=== PATIENT | female | born 1970 | race Caucasian/White ===

== ENCOUNTER 2016-12-27 18:21 | Emergency (ER) | payer SELFPAY ==
--- NOTE | 2016-12-27 18:58 | ER Document Report ---
HPI - HPI Patient complains to provider of: swelling behind right ear Pain Level: 4 Context: 46 yo female c/o painful swelling behind right ear x 1 day. concerned she may have a spider bite. no fever. pt feels otherwise fine Associated Symptoms: None Exacerbated by: Denies Relieved by: Denies Similar symptoms previously: No Recently seen / treated by doctor: No - ROS Systems Reviewed and Negative: Yes All other systems reviewed and negative - DERM Skin Color: Normal, [place] Past Medical History - General Information source: Patient - Social History Smoking Status: Current Every Day Smoker Frequency of alcohol use: None Drug Abuse: None Lives with: Family Family History: Reviewed & Not Pertinent - Past Medical History Cardiac Medical History: Reports: Hx Hypertension Renal/ Medical History: Denies: Hx Peritoneal Dialysis Vertical Provider Document - CONSTITUTIONAL Agree With Documented VS: Yes Exam Limitations: No Limitations General Appearance: WD/WN, No Apparent Distress - INFECTION CONTROL TRAVEL OUTSIDE OF THE [place] IN LAST 30 DAYS: No - HEENT HEENT: Atraumatic, Normal ENT Exam, PERRLA Notes: + discrete right post auricular tender swollen node. no redness, warmth or other s/s infection - NECK Neck: Normal Inspection, Supple. negative: Lymphadenopathy-Left, Lymphadenopathy-Right - RESPIRATORY Respiratory: Breath Sounds Normal, No Respiratory Distress - CARDIOVASCULAR Cardiovascular: Regular Rate, Regular Rhythm - NEURO Level of Consciousness: Awake, Alert, Appropriate - DERM Integumentary: Warm, Dry Course - Re-evaluation Re-evalutation: 12/27/16 19:00 H&P c/w an inflamed lymph node. pt is afebrile, nontoxic, no s/s infection. will treat with anti-inflammatory medication and close follow up with primary care. pt agreeable with plan and stable for discharge Discharge - Discharge Clinical Impression: Adenopathy Condition: Stable Disposition: HOME, SELF-CARE Instructions: Lymphadenopathy ([facility]), Ibuprofen (General) ([facility]), Warm Packs ([facility] ) Additional Instructions: You have an inflamed lymph node Take Motrin as presecribed Try not to aggravate area Follow up with primary care or return to ER for any worsening Prescriptions: Ibuprofen [Motrin 800 Mg Tablet] 800 mg PO Q6H #20 tablet
== END 2016-12-27 19:24 | disposition home or self-care (01) ==
LOC: ER 18:21
DX: R59.0 Localized enlarged lymph nodes (principal); I10 Essential (primary) hypertension; F17.200 Nicotine dependence, unspecified, uncomplicated
CPT/HCPCS: 99281

== ENCOUNTER 2017-01-04 17:12 | Observation (INO) | payer SELFPAY ==
--- NOTE | 2017-01-04 18:31 | ER Document Report ---
ED Medical Screen (RME) - General Chief Complaint: Leg Swelling Stated Complaint: LEGS SWELLING Time Seen by Provider: 01/04/17 18:13 Notes: Patient reports bilateral lower extremity swelling. She states this started on the left but is now spread to the right. She states the appear to be swelling equally. No chest pain or shortness of breath. No history of DVTs. No recent trauma. No hormone therapy. No recent long plane rides or car trips. No recent surgery. No history of kidney disease or heart disease. TRAVEL OUTSIDE OF THE [place] IN LAST 30 DAYS: No - Related Data Allergies/Adverse Reactions: cephalexin [From Keflex] Allergy (Verified 01/04/17 17:19) erythromycin base Allergy (Verified 01/04/17 17:19) etodolac Allergy (Verified 01/04/17 17:19) Penicillins Allergy (Verified 01/04/17 17:19) Sulfa (Sulfonamide Antibiotics) Allergy (Verified 01/04/17 17:19) Home Medications: Current Home Medications Lisinopril [Lisinopril] 10 mg PO DAILY 01/04/17 [History] Naproxen Sodium 220 mg PO DAILY PRN 01/04/17 [History] Past Medical History - Social History Chew tobacco use (# tins/day): No Frequency of alcohol use: None Drug Abuse: None - Past Medical History Cardiac Medical History: Reports: Hx Hypertension Renal/ Medical History: Denies: Hx Peritoneal Dialysis Physical Exam - Vital signs Vitals: Temp Pulse Resp BP Pulse Ox 98.5 F 72 18 138/69 H 100 01/04/17 17:19 01/04/17 17:19 01/04/17 17:19 01/04/17 17:19 01/04/17 17:19 Course - Vital Signs Vital signs: Temp Pulse Resp BP Pulse Ox 98.5 F 72 18 138/69 H 100 01/04/17 17:19 01/04/17 17:19 01/04/17 17:19 01/04/17 17:19 01/04/17 17:19
[2017-01-04 18:58] LABS: APPEARANCE,URINE SLIGHTLY-CLOUDY; BILIRUBIN,URINE NEGATIVE (NEGATIVE); GLUCOSE, URINE NEGATIVE (NEGATIVE); KETONES,URINE NEGATIVE (NEGATIVE); LEUKOCYTE ESTERASE,URINE NEGATIVE (NEGATIVE); NITRITE,URINE NEGATIVE (NEGATIVE); PROTEIN,URINE 30 mg/dL (NEGATIVE); URINE SPECIFIC GRAVITY 1.026; UROBILINOGEN,URINE NEGATIVE mg/dL (<2.0)
[2017-01-04 19:01] LABS: HEMATOCRIT 20.5 % (36.0-47.0); HGB HCT DIFFERENCE -3.1; MEAN CORPUSCULAR HEMOGLOBIN 17.1 pg (27.0-33.4); MEAN CORPUSCULAR HGB CONC 28.1 g/dL (32.0-36.0); RED BLOOD COUNT 3.39 10^6/uL (3.72-5.28); RED CELL DISTRIBUTION WIDTH 21.7 % (11.5-14.0); WHITE BLOOD COUNT 5.2 10^3/uL (4.0-10.5)
[2017-01-04 19:12] LABS: ALANINE AMINOTRANSFERASE 15 U/L (9-52); ALKALINE PHOSPHATASE 44 U/L (38-126); ANION GAP 9 (5-19); ASPARTATE AMINO TRANSFERASE 16 U/L (14-36); BILIRUBIN,DIRECT 0.3 mg/dL (0.0-0.4); BILIRUBIN,TOTAL 0.4 mg/dL (0.2-1.3); BLOOD UREA NITROGEN 9 mg/dL (7-20); CALCIUM 9.1 mg/dL (8.4-10.2); CARBON DIOXIDE 24 mmol/L (22-30); CHLORIDE 106 mmol/L (98-107); GLUCOSE 68 mg/dL (75-110); POTASSIUM 3.5 mmol/L (3.6-5.0); SODIUM 138.5 mmol/L (137-145); TOTAL PROTEIN 6.9 g/dL (6.3-8.2)
[2017-01-04 19:18] LABS: BASOPHILS % (MANUAL) 0 % (0-2); EOSINOPHILS % (MANUAL) 0 % (0-6); LYMPHOCYTES % (MANUAL) 25 % (13-45); TOTAL CELLS COUNTED 100
[2017-01-04 19:20] LABS: HYPOCHROMASIA 3+; MICROCYTOSIS 3+; OVALOCYTES SLIGHT; POIKILOCYTOSIS SLIGHT; POLYCHROMASIA SLIGHT; ROULEAUX 1+; TEAR DROP CELLS SLIGHT
[2017-01-04 19:21] LABS: MEAN CORPUSCULAR VOLUME 61 fl (80-97)
[2017-01-04 19:25] LABS: HEMOGLOBIN 5.8 g/dL (12.0-15.5)
[2017-01-04 19:52] LABS: THYROID STIMULATING HORMONE 2.1 uIU/mL (0.47-4.68)
[2017-01-04] MEDS ORDERED: FUROSEMIDE INJ/PF 40 MG/4 ML SDV IV ONE (20:06)
[2017-01-04] MEDS ORDERED: NORMAL SALINE 250 ML IV PRN ×2 (20:08)
--- NOTE | 2017-01-04 20:44 | RADIOLOGY REPORT (SQ) ---
EXAM DESCRIPTION: CHEST SINGLE VIEW COMPLETED DATE/TIME: 01/04/2017 8:22 pm REASON FOR STUDY: CP COMPARISON: None. EXAM PARAMETERS: NUMBER OF VIEWS: One view. TECHNIQUE: Single frontal radiographic view of the chest acquired. RADIATION DOSE: NA LIMITATIONS: None. FINDINGS: LUNGS AND PLEURA: No opacities, masses or pneumothorax. No pleural effusion. MEDIASTINUM AND HILAR STRUCTURES: No masses. Contour normal. HEART AND VASCULAR STRUCTURES: Heart normal in size. Normal vasculature. BONES: No acute findings. HARDWARE: None in the chest. OTHER: No other significant finding. IMPRESSION: NO ACUTE RADIOGRAPHIC FINDING IN THE CHEST. TECHNICAL DOCUMENTATION: JOB ID: [id number]
[2017-01-04] MEDS ORDERED: MAG HYDROX/AL HYDROX/SIMETH SUSP 30 ML UDCUP PO PRN (21:58)
[2017-01-04] MEDS ORDERED: ACETAMINOPHEN 325 MG TABLET PO PRN (21:58)
[2017-01-04] MEDS ORDERED: ONDANSETRON HCL INJ/PF 4 MG/2 ML SDV IV PRN (21:58)
[2017-01-04] MEDS ORDERED: IRON SUCROSE COMPLEX INJ/PF 100 MG/5 ML SDV IV PRN (22:50)
[2017-01-04] MEDS: HEPARIN SOD (PORCINE) 5,000 UNIT/ML 1 ML SYRINGE SUBCUT SCH (22:52)
--- NOTE | 2017-01-04 22:53 | RADIOLOGY REPORT (SQ) ---
EXAM DESCRIPTION: U/S NON-OB PELVIS TV W/O DOP COMPLETED DATE/TIME: 01/04/2017 10:41 pm REASON FOR STUDY: heavy vaginal bleeding, anemia Hgb 5.8 COMPARISON: None. TECHNIQUE: Dynamic and static grayscale images acquired of the pelvis via transvaginal approach and recorded on PACS. Additional selected color Doppler and spectral images recorded. LIMITATIONS: None. FINDINGS: UTERUS: Multiple fibroids. The largest is 4.7 cm. ENDOMETRIAL STRIPE: No focal or generalized thickening. No masses. CERVIX: No nabothian cysts. RIGHT OVARY: 3.3 cm cyst. RIGHT OVARY DOPPLER: Normal arterial vascular flow without evidence for torsion. LEFT OVARY: Complex cystic area with septations measuring 6.3 x 6.1 x 3.2 cm LEFT OVARY DOPPLER: Normal arterial vascular flow without evidence for torsion. FREE FLUID: None noted. OTHER: No other significant finding. MEASUREMENTS: UTERUS: 9.4 cm ENDOMETRIAL STRIPE: 13 mm RIGHT OVARY: 4.8 cm LEFT OVARY: 6.3 cm IMPRESSION: Dominant 3.3 cm right ovarian cysts. Complex diffuse cystic left ovary with septations total measurement 6.3 cm Multiple fibroids. TECHNICAL DOCUMENTATION: JOB ID: [id number] [employer]- All Rights Reserved
--- NOTE | 2017-01-04 22:56 | ER Document Report ---
ED General - General Chief Complaint: Leg Swelling Stated Complaint: LEGS SWELLING Time Seen by Provider: 01/04/17 18:13 Mode of Arrival: Ambulatory Information source: Patient TRAVEL OUTSIDE OF THE [place] IN LAST 30 DAYS: No - HPI Notes: Patient is a pleasant 46-year-old female presents emergency department with report of chronic history of heavy menstrual cycles and reports that she had a menstrual cycle that lasted 7 weeks back in November but has not had a menstrual cycle for the last 6 weeks now. The patient was seen 1 week ago with a lymph node that was swollen behind the right ear that is since resolved, but she was placed upon ibuprofen on regular interval that she is taken consistently for the last week. The patient reports over the course of the last month she has noticed gradual progressive swelling in both legs. She also reports some dyspnea on exertion but denies any orthopnea. She reports no prior history of anemia. She states occasionally she will get some crampy pelvic pain, but denies any pain currently. She reports some exertional chest pain over the past week while at work, but denies any chest pain currently. No prior history of cardiac disease. Patient does report some abnormal bruising occasionally. - Related Data Allergies/Adverse Reactions: cephalexin [From Keflex] Allergy (Verified 01/04/17 17:19) erythromycin base Allergy (Verified 01/04/17 17:19) etodolac Allergy (Verified 01/04/17 17:19) Penicillins Allergy (Verified 01/04/17 17:19) Sulfa (Sulfonamide Antibiotics) Allergy (Verified 01/04/17 17:19) Home Medications: Current Home Medications Lisinopril [Lisinopril] 10 mg PO DAILY 01/04/17 [History] Naproxen Sodium 220 mg PO DAILY PRN 01/04/17 [History] Past Medical History - General Information source: Patient - Social History Smoking Status: Former Smoker Chew tobacco use (# tins/day): No Frequency of alcohol use: None Drug Abuse: None Family History: Reviewed & Not Pertinent - Past Medical History Cardiac Medical History: Reports: Hx Hypertension Renal/ Medical History: Denies: Hx Peritoneal Dialysis Review of Systems - Review of Systems Notes: REVIEW OF SYSTEMS: CONSTITUTIONAL : Denies fever, chills, or sweats. EENT: Denies eye, ear, throat, or mouth pain or symptoms. Denies nasal or sinus congestion or discharge. Denies throat, tongue, or mouth swelling or difficulty swallowing. CARDIOVASCULAR: Denies current chest pain. Denies palpitations or racing or irregular heart beat. RESPIRATORY: Denies cough, cold, or chest congestion. Denies wheezing. GASTROINTESTINAL: Denies abdominal pain or distention. Denies nausea, vomiting , or diarrhea. Denies blood in vomitus, stools, or per rectum. Denies black, tarry stools. Denies constipation. GENITOURINARY: Denies difficulty urinating, painful urination, burning, frequency, blood in urine, or discharge. FEMALE GENITOURINARY: Denies current vaginal bleeding, but does report heavy or abnormal periods and irregular periods. Denies vaginal discharge or odor. MUSCULOSKELETAL: Denies back or neck pain or stiffness. Denies joint pain or swelling. SKIN: Denies rash, lesions or sores. HEMATOLOGIC : Denies easy bruising or bleeding. LYMPHATIC: Denies swollen, enlarged glands. NEUROLOGICAL: Denies confusion or altered mental status. Denies passing out or loss of consciousness. Denies dizziness or lightheadedness. Denies headache. Denies weakness or paralysis or loss of use of either side. Denies problems with gait or speech. Denies sensory loss, numbness, or tingling. Denies seizures. PSYCHIATRIC: Denies anxiety or stress. Denies depression, suicidal ideation, or homicidal ideation. ALL OTHER SYSTEMS REVIEWED AND NEGATIVE. Dictation was performed using [employer] voice recognition software Physical Exam - Vital signs Vitals: Temp Pulse Resp BP Pulse Ox 98.5 F 72 18 138/69 H 100 01/04/17 17:19 01/04/17 17:19 01/04/17 17:19 01/04/17 17:19 01/04/17 17:19 - Notes Notes: PHYSICAL EXAMINATION: GENERAL: Well-appearing, well-nourished and in no acute distress. HEAD: Atraumatic, normocephalic. EYES: Pupils equal round and reactive to light, extraocular movements intact, conjunctiva are pale. ENT: Nares patent, oropharynx clear without exudates. Moist mucous membranes. NECK: Normal range of motion, supple without lymphadenopathy LUNGS: Breath sounds clear to auscultation bilaterally and equal. No wheezes rales or rhonchi. HEART: Regular rate and rhythm with 1/6 systolic ejection murmur over apex ABDOMEN: Soft, nontender, nondistended abdomen. No guarding, no rebound. No masses appreciated. Female : deferred Musculoskeletal: Normal range of motion. No cyanosis. patient has 3+ pitting edema bilaterally. Negative Homans. No palpable cord. NEUROLOGICAL: Cranial nerves grossly intact. Normal speech, normal gait. Normal sensory, motor exams PSYCH: Normal mood, normal affect. SKIN: Warm, Dry, normal turgor, no rashes or lesions noted. Some bruising noted on the legs. Course - Re-evaluation Re-evalutation: 01/04/17 22:56 Patient was found to be profoundly anemic with a hemoglobin of 5.8. There is no evidence for significant continued bleeding. Guaiac was heme negative. Patient has not had any vaginal bleeding in over 6 weeks, and I question whether not her elevated BNP of 350 may be high output. Chest x-ray as interpreted by me showed slight cardiomegaly but no obvious congestive heart failure. Lower extremity swelling may be made worse related to the recent anti- inflammatory use. There is no renal insufficiency noted. Hopefully the anemia is only secondary to the significant menorrhagia that the patient reports. There may be an iron deficiency component, and iron studies are ordered. There is no obvious evidence for acute [place] or ischemia, but the exertional chest pain is somewhat suspicious. Discussion was undertaken with the patient and she was in agreement with transfusion of blood products after discussion of risks alternatives and benefits. She was also in agreement with admission for further evaluation. Discussion was undertaken with Dr. Ramirez, hospitalist and he agreed to admit the patient observation status and transfusion. [employer] PSYCHIATRIST consult will also be undertaken. Pelvic ultrasound to assess for possible fibroids as ordered. No evidence for or UTI. 01/04/17 22:58 - Vital Signs Vital signs: Temp Pulse Resp BP Pulse Ox 98.5 F 72 18 138/69 H 100 01/04/17 17:19 01/04/17 17:19 01/04/17 17:19 01/04/17 17:19 01/04/17 17:19 - Laboratory Result Diagrams: 01/04/17 18:30 01/04/17 18:30 Laboratory results interpreted by me: 01/04/17 01/04/17 01/04/17 18:30 18:30 18:30 RBC 3.39 L Hgb 5.8 L Hct 20.5 L MCV 61 L MCH 17.1 L MCHC 28.1 L RDW 21.7 H Monocytes % (Manual) 15 H Potassium 3.5 L Glucose 68 L Iron TIBC NT-Pro-B Natriuret Pep Urine Protein 30 H Crossmatch 01/04/17 01/04/17 01/04/17 18:30 21:13 21:13 RBC Hgb Hct MCV MCH MCHC RDW Monocytes % (Manual) Potassium Glucose Iron < 10.1 L TIBC 465 H NT-Pro-B Natriuret Pep 350 H Urine Protein Crossmatch See Detail - EKG Interpretation by Me EKG shows normal: Sinus rhythm Additional EKG results interpreted by me: 01/04/17 22:56 EKG as interpreted by me showed normal sinus rhythm heart rate of 69. There is no gross evidence for acute [place] or ischemia identified. There is no old EKG available for comparison. Critical Care Note - Critical Care Note Total time excluding time spent on procedures (mins): 34 Discharge - Discharge Clinical Impression: Menorrhagia with irregular cycle Edema Qualifiers: Edema type: unspecified Qualified Code(s): R60.9 - Edema, unspecified Anemia Qualifiers: Anemia type: unspecified type Qualified Code(s): D64.9 - Anemia, unspecified Dyspnea Qualifiers: Dyspnea type: dyspnea on exertion Qualified Code(s): R06.09 - Other forms of dyspnea Condition: Stable Disposition: ADMITTED OBSERVATION Admitting Provider: Hospitalist Unit Admitted: Medical Floor
--- NOTE | 2017-01-04 23:21 | EKG REPORT ---
SEVERITY:- NORMAL ECG - SINUS RHYTHM : Confirmed by: Leyda Kent 04-Jan-2017 23:21:15
[2017-01-04] MEDS ORDERED: IRON SUCROSE COMPLEX 100 MG in NORMAL SALINE 100 ML IV ONE (23:30)
--- NOTE | 2017-01-05 03:30 | PDOC H&P ---
History of Present Illness Admission Date/PCP: 01/04/17 21:58 Patient complains of: Leg swelling and fatigue History of Present Illness: SUZETTE HART is a 46 year old female with past medical history of irregular menstruation and episodes of menorrhagia. Presenting with increasing lower extremity edema and exertional shortness of breath over the last 5 days. She denies epigastric pain or dark colored stools and in the emergency room she has a negative Hemoccult stool but a hemoglobin of only 5.8 and iron less than 10. She is referred to the hospitalist for admission and ordered 2 units of packed red blood cells. Patient admits most recent menses occurred in August but was heavy lasting 7 weeks. She has had an unclear outpatient workup of uterine bleeding in the past. Past Medical History Cardiac Medical History: Reports: Hypertension Psychiatric Medical History: Denies: Depression Hematology: Reports: Anemia Social History Information Source: Patient Smoking Status: Former Smoker Number of Years Smokin Last Time Smoked: 18 years ago Frequency of Alcohol Use: None Hx Recreational Drug Use: No Drugs: None Hx Prescription Drug Abuse: No - Advance Directive Resuscitation Status: Full Code Family History Family History: Arthritis, COPD Parental Family History Reviewed: Yes Children Family History Reviewed: Yes Sibling(s) Family History Reviewed.: Yes Medication/Allergy Home Medications: Ibuprofen [Motrin 800 Mg Tablet] 800 mg PO Q6H #20 tablet 12/27/16 Lisinopril [Lisinopril] 10 mg PO DAILY 01/04/17 Naproxen Sodium 220 mg PO DAILY PRN 01/04/17 Allergies/Adverse Reactions: cephalexin [From Keflex] Allergy (Verified 01/04/17 17:19) erythromycin base Allergy (Verified 01/04/17 17:19) etodolac Allergy (Verified 01/04/17 17:19) Penicillins Allergy (Verified 01/04/17 17:19) Sulfa (Sulfonamide Antibiotics) Allergy (Verified 01/04/17 17:19) Review of Systems Constitutional: PRESENT: fatigue Eyes: ABSENT: visual disturbances Ears: ABSENT: hearing changes Cardiovascular: PRESENT: dyspnea on exertion. ABSENT: chest pain, edema, orthropnea, palpitations Respiratory: ABSENT: cough, hemoptysis Gastrointestinal: ABSENT: abdominal pain, constipation, diarrhea, hematemesis, hematochezia, nausea, vomiting Genitourinary: ABSENT: dysuria, hematuria Musculoskeletal: ABSENT: joint swelling Integumentary: ABSENT: rash, wounds Neurological: ABSENT: abnormal gait, abnormal speech, confusion, dizziness, focal weakness, syncope Psychiatric: ABSENT: anxiety, depression, homidical ideation, suicidal ideation Endocrine: ABSENT: cold intolerance, heat intolerance, polydipsia, polyuria Hematologic/Lymphatic: ABSENT: easy bleeding, easy bruising Physical Exam Vital Signs: Temp Pulse Resp BP Pulse Ox 98.4 F 72 23 H 133/78 H 100 01/04/17 23:51 01/04/17 17:19 01/04/17 23:57 01/04/17 23:57 01/05/17 00:02 General appearance: PRESENT: no acute distress, well-developed, well-nourished, other - Pale Head exam: PRESENT: atraumatic, normocephalic Eye exam: PRESENT: conjunctiva pale, EOMI, PERRLA. ABSENT: scleral icterus Ear exam: PRESENT: normal external ear exam Mouth exam: PRESENT: moist, tongue midline Neck exam: ABSENT: carotid bruit, JVD, lymphadenopathy, thyromegaly Respiratory exam: PRESENT: clear to auscultation kayleigh. ABSENT: rales, rhonchi, wheezes Cardiovascular exam: PRESENT: RRR. ABSENT: diastolic murmur, rubs, systolic murmur Pulses: PRESENT: normal dorsalis pedis pul Vascular exam: PRESENT: normal capillary refill GI/Abdominal exam: PRESENT: normal bowel sounds, soft. ABSENT: distended, guarding, mass, organolmegaly, rebound, tenderness Rectal exam: PRESENT: deferred Extremities exam: PRESENT: full ROM, pedal edema, +1 edema. ABSENT: calf tenderness, clubbing Neurological exam: PRESENT: alert, awake, oriented to person, oriented to place , oriented to time, oriented to situation, CN II-XII grossly intact. ABSENT: motor sensory deficit Psychiatric exam: PRESENT: appropriate affect, normal mood. ABSENT: homicidal ideation, suicidal ideation Skin exam: PRESENT: dry, intact, warm. ABSENT: cyanosis, rash Results Impressions: Chest X-Ray 01/04/17 20:07 IMPRESSION: NO ACUTE RADIOGRAPHIC FINDING IN THE CHEST. Transvaginal US 01/04/17 20:39 IMPRESSION: Dominant 3.3 cm right ovarian cysts. Complex diffuse cystic left ovary with septations total measurement 6.3 cm Multiple fibroids. Assessment & Plan - Diagnosis (1) Anemia Qualifiers: Anemia type: iron deficiency Iron deficiency anemia type: other iron deficiency Qualified Code(s): D50.8 - Other iron deficiency anemias Is this a current diagnosis for this admission?: Yes Plan: Patient gives a clear history of menorrhagia resulting in iron deficiency, ultrasound concerning for fibroids and ovarian mass. 2 units of packed red blood cells ordered, IV iron given failure of p.o. follow-up CBC and SITE PROMOTION AGENT consult. (2) Edema Qualifiers: Edema type: unspecified Qualified Code(s): R60.9 - Edema, unspecified Is this a current diagnosis for this admission?: Yes Plan: Secondary to high-output heart failure anticipate resorption with correction of anemia. Follow-up CBC (3) Menorrhagia with irregular cycle Is this a current diagnosis for this admission?: Yes Plan: SITE PROMOTION AGENT consulted given history of menorrhagia, fibroids and ovarian mass. - Time Time Spent: 50 to 70 Minutes - Inpatient Certification Medical Necessity: Need Close Monitoring Due to Risk of Patient Decompensation
[2017-01-05] MEDS: HEPARIN SOD (PORCINE) 5,000 UNIT/ML 1 ML SYRINGE SUBCUT SCH ×2 (05:37→13:55)
[2017-01-05 09:13] LABS: HEMATOCRIT 26.8 % (36.0-47.0); HEMOGLOBIN 8.4 g/dL (12.0-15.5); HGB HCT DIFFERENCE -1.6; MEAN CORPUSCULAR HEMOGLOBIN 20.6 pg (27.0-33.4); MEAN CORPUSCULAR HGB CONC 31.1 g/dL (32.0-36.0); RED BLOOD COUNT 4.06 10^6/uL (3.72-5.28); RED CELL DISTRIBUTION WIDTH 29.7 % (11.5-14.0); WHITE BLOOD COUNT 5.3 10^3/uL (4.0-10.5)
[2017-01-05 09:14] LABS: MEAN CORPUSCULAR VOLUME 66 fl (80-97)
--- NOTE | 2017-01-05 11:08 | PDOC CONSULTATION ---
Consultation Consult Date: 01/05/17 Attending physician:: HILLARY BAH Consult reason:: Anemia History of Present Illness Admission Date/PCP: 01/04/17 21:58 Patient complains of: Patient presented complaining of feet swelling to the ER History of Present Illness: Patient is a 46-year-old female 2 para 1 AB 1 with a last menstrual period of November 16 presenting with swelling and anemia to the ER. She reports a long history of heavy menses. Past Medical History LMP: November 16 Menses: Heavy menses Obstetrical History: none - She has had one vaginal delivery and one miscarriage Cardiac Medical History: Reports: Hypertension Psychiatric Medical History: Denies: Depression Social History Smoking Status: Former Smoker Number of Years Smokin Last Time Smoked: 18 years ago Frequency of Alcohol Use: None Hx Recreational Drug Use: No Drugs: None Hx Prescription Drug Abuse: No - Advance Directive Resuscitation Status: Full Code Family History Family History: Arthritis, COPD Parental Family History Reviewed: Yes Children Family History Reviewed: Yes Sibling(s) Family History Reviewed.: Yes Medication/Allergy Home Medications: Lisinopril [Lisinopril] 10 mg PO DAILY 01/04/17 Ibuprofen [Motrin 800 Mg Tablet] 800 mg PO Q6 01/05/17 Allergies/Adverse Reactions: cephalexin [From Keflex] Allergy (Verified 01/04/17 17:19) erythromycin base Allergy (Verified 01/04/17 17:19) etodolac Allergy (Verified 01/04/17 17:19) Penicillins Allergy (Verified 01/04/17 17:19) Sulfa (Sulfonamide Antibiotics) Allergy (Verified 01/04/17 17:19) Physical Exam - Physical Exam Vital Signs: Temp Pulse Resp BP Pulse Ox 98.5 F 66 13 127/75 H 100 01/05/17 07:35 01/05/17 07:35 01/05/17 07:35 01/05/17 07:35 01/05/17 07:35 Intake & Output 01/04/17 01/05/17 01/06/17 06:59 06:59 06:59 Intake Total 650 Output Total 400 Balance 250 Weight 75.7 kg General appearance: PRESENT: no acute distress Head exam: PRESENT: atraumatic Respiratory exam: PRESENT: clear to auscultation kayleigh Cardiovascular exam: PRESENT: RRR. ABSENT: diastolic murmur, rubs, systolic murmur GI/Abdominal exam: PRESENT: normal bowel sounds, soft. ABSENT: distended, guarding, mass, organolmegaly, rebound, tenderness Result Laboratory Results: 01/05/17 08:28 01/05/17 08:28 WBC 5.3 RBC 4.06 Hgb 8.4 L D Hct 26.8 L MCV 66 L D MCH 20.6 L MCHC 31.1 L RDW 29.7 H Plt Count 175 Impressions: Chest X-Ray 01/04/17 20:07 IMPRESSION: NO ACUTE RADIOGRAPHIC FINDING IN THE CHEST. Transvaginal US 01/04/17 20:39 IMPRESSION: Dominant 3.3 cm right ovarian cysts. Complex diffuse cystic left ovary with septations total measurement 6.3 cm Multiple fibroids. Assessment & Plan - Diagnosis (1) Anemia Qualifiers: Anemia type: iron deficiency Iron deficiency anemia type: other iron deficiency Qualified Code(s): D50.8 - Other iron deficiency anemias Is this a current diagnosis for this admission?: Yes Plan: The patient is noted to have fibroids on ultrasound and has heavy menses. She also has a 6 cm ovarian cyst. I would recommend Depo-Provera to stop her menses. I would also recommend iron and vitamin C to restore her iron stores. She needs a follow-up in the office to reevaluate her ovarian cyst and follow- up of the Depo Provera. If the Depo-Provera works she can be followed to menopause at which time the fibroids will shrink. If she continues to have heavy be bleeding on the Depo-Provera we can consider hysterectomy. She reports her Pap smear is up-to-date. - Time Time Spent: 30 to 50 Minutes Critical Time spent with patient: Less than 15 minutes Medications reviewed and adjusted accordingly: Yes Anticipated discharge: Home Within: within 24 hours - Plan Summary Plan Summary: As stated above
[2017-01-05] MEDS ORDERED: MEDROXYPROGESTERONE ACET INJ 150 MG/1 ML VIAL IM ONE (12:30)
[2017-01-05 15:36] VITALS: BP 119/66
--- NOTE | 2017-01-05 17:50 | PDOC DISCHARGE SUMMARY ---
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 He would like to follow her up as an outpatient in regards to her large ovarian cysts and uterine fibroids (2) Symptomatic anemia Summary: The patient presented with symptomatic anemia and was found to have hemoglobin less than 6. She was transfused 2 units of packed red blood cells with the appropriate response to her hemoglobin. She has a severe iron deficiency anemia secondary to menorrhagia. She was given 1 dose of IV iron and will be sent home with p.o. supplementation. (3) Edema Is this a current diagnosis for this admission?: Yes Summary: The patient had lower extremity edema likely secondary to her severe profound anemia. (4) Ovarian cyst Summary: The patient was found to have a large ovarian cyst. [employer] would like to follow her up as an outpatient. Unfortunately she does not have any insurance at this point. I had consulted the discharge planners to see if we can get her signed up for the affordable care act. She does not qualify for Medicaid at this time. I have tentatively scheduled her an appointment to follow-up with Dr. Beverly. I have asked her to call his appointment and try to make financial arrangements ahead of time if she does not get insurance in place prior to that time. She can continue her Depo-Medrol injections at the [facility]. (5) Uterine fibroid Summary: She may require hysterectomy in the future. Plan as above in regards to [employer] follow-up. Hopefully her Depo-Medrol injections will help with her dysfunctional uterine bleeding. - Additional Information Resuscitation Status: Full Code Discharge Diet: As Tolerated Discharge Activity: Activity As Tolerated, Balance Activity w/Rest, Slowly Increase Activity Home Medications: Lisinopril 10 mg PO DAILY 01/04/17 Ferrous Sulfate [Slow Release Iron] 250 mg PO DAILY #30 tablet.er 01/05/17 History of Present Illness History of Present Illness: SUZETTE HART is a 46 year old female who presented to the emergency room with lower extremity edema and dyspnea. Hospital Course Hospital Course: The patient presented to the emergency room with lower extremity edema and dyspnea. She was found to have a hemoglobin of 5.8. Upon further discussion it was found that she has extremely heavy periods and dysfunctional uterine bleeding. She was admitted to the hospital. She was transfused 2 units of packed red blood cells. She was seen by the SAL[employer] service this morning who is recommended initiating the patient on Depo-Medrol in the hopes that this would stop her periods. Unfortunately the patient does not have any medical insurance. The discharge planners were contacted at the time of discharge to try to get her signed up for the affordable care act. She is not a candidate for Medicaid. She will follow-up at the [facility]. She can receive her Depo-Medrol injections there. Perhaps they could help get [employer] follow-up. I have tentatively made her an appointment to follow-up with Dr. Beverly in 6-8 weeks. Hopefully she can obtain insurance prior to that time. I have instructed her to call the office to see if she could make financial arrangements as well. On the day of discharge the patient's dyspnea is resolved. She still has some mild lower extremity edema which is improving. She feels much better after receiving her blood transfusions. She will be discharged with iron supplementation at home. She should follow-up with the [facility] next week for repeat CBC. At this point maximum hospital benefits been reached. The patient will be discharged home today in stable condition. Physical Exam Vital Signs: Temp Pulse Resp BP Pulse Ox 97.9 F 70 15 119/66 99 01/05/17 15:31 01/05/17 15:31 01/05/17 15:31 01/05/17 15:31 01/05/17 15:31 Intake & Output 01/04/17 01/05/17 01/06/17 06:59 06:59 06:59 Intake Total 650 790 Output Total 400 200 Balance 250 590 Weight 75.7 kg General appearance: PRESENT: no acute distress, well-developed, well-nourished Head exam: PRESENT: atraumatic, normocephalic Eye exam: PRESENT: conjunctiva pale Mouth exam: PRESENT: moist Respiratory exam: PRESENT: clear to auscultation kayleigh. ABSENT: rales, rhonchi, wheezes Cardiovascular exam: PRESENT: RRR, +S1, +S2. ABSENT: diastolic murmur, gallop, rubs, systolic murmur GI/Abdominal exam: PRESENT: normal bowel sounds, soft. ABSENT: tenderness Extremities exam: ABSENT: calf tenderness, clubbing, pedal edema Neurological exam: PRESENT: alert, altered, awake, oriented to person, oriented to place, oriented to time, oriented to situation Psychiatric exam: PRESENT: appropriate affect Skin exam: PRESENT: dry, warm Results Laboratory Results: 01/05/17 08:28 01/05/17 08:28 WBC 5.3 RBC 4.06 Hgb 8.4 L D Hct 26.8 L MCV 66 L D MCH 20.6 L MCHC 31.1 L RDW 29.7 H Plt Count 175 Impressions: Chest X-Ray 01/04/17 20:07 IMPRESSION: NO ACUTE RADIOGRAPHIC FINDING IN THE CHEST. Transvaginal US 01/04/17 20:39 IMPRESSION: Dominant 3.3 cm right ovarian cysts. Complex diffuse cystic left ovary with septations total measurement 6.3 cm Multiple fibroids. Qualifiers PATEINT BEING DISCHARGED WITH ANY OF THE FOLLOWING DIAGNOSIS?: No
== END 2017-01-05 16:14 | disposition home or self-care (01) ==
LOC: ER 17:12 → EH 21:58 → UNDOADMOB 23:37 → 4S 01-05 02:50
PROVIDERS: ADMIT Internal Medicine; ATTEND Internal Medicine
PROC: 30233N1 Transfusion of Nonautologous Red Blood Cells into Peripheral Vein, Percutaneous Approach (ICD-10-PCS; principal; 2017-01-04)
PROC: 30233N1 Transfusion of Nonautologous Red Blood Cells into Peripheral Vein, Percutaneous Approach (ICD-10-PCS; 2017-01-05)
DX: N92.1 Excessive and frequent menstruation with irregular cycle (principal); D50.8 Other iron deficiency anemias; R60.0 Localized edema; N83.292 Other ovarian cyst, left side; D25.9 Leiomyoma of uterus, unspecified; N93.8 Other specified abnormal uterine and vaginal bleeding; I10 Essential (primary) hypertension; Z87.891 Personal history of nicotine dependence; Z82.5 Family history of asthma and other chronic lower respiratory diseases; Z79.899 Other long term (current) drug therapy
CPT/HCPCS: 93005; 99291; 96372; 86900; 86901; 36415 ×2; 84439; 36430; 86850; 83540; 83550; 84443; 85025; 85027; 85610; 82272; 81025; 80053; 81001; 84484; 86920; 83880; 71010; 76830; 93010; G0378 ×3; P9016 ×2; J1940; J1050

== ENCOUNTER 2017-03-08 16:22 | Emergency (ER) | payer SELFPAY ==
[2017-03-08 17:03] VITALS: BP 138/80
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
== END 2017-03-08 17:28 | disposition home or self-care (01) ==
LOC: ER 16:22
DX: L29.9 Pruritus, unspecified (principal); I10 Essential (primary) hypertension
CPT/HCPCS: 99282

== ENCOUNTER 2018-03-20 19:37 | Emergency (ER) | payer BC ==
[2018-03-20] MEDS ORDERED: ASPIRIN 81 MG TABLET, CHEWABLE PO ONE (19:50)
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
[2018-03-20 20:21] LABS: ABSOLUTE EOSINOPHILS # (AUTO) 0.1 10^3/uL (0.0-0.6); ABSOLUTE LYMPHOCYTES (AUTO) 1.7 10^3/uL (0.5-4.7); ABSOLUTE MONOCYTES (AUTO) 0.6 10^3/uL (0.1-1.4); ABSOLUTE NEUT (AUTO) 3.7 10^3/uL (1.7-8.2); BASOPHILS % (AUTO) 0.5 % (0-2); EOSINOPHILS % (AUTO) 1.3 % (0-6); HEMATOCRIT 42.6 % (36.0-47.0); HEMOGLOBIN 14.3 g/dL (12.0-15.5); LYMPHOCYTES % (AUTO) 27.5 % (13-45); MEAN CORPUSCULAR HGB CONC 33.7 g/dL (32.0-36.0); MEAN CORPUSCULAR VOLUME 95 fl (80-97); MONOCYTES % (AUTO) 10.1 % (3-13); PLATELET COUNT 329 10^3/uL (150-450); RED BLOOD COUNT 4.47 10^6/uL (3.72-5.28); RED CELL DISTRIBUTION WIDTH 13.5 % (11.5-14.0); SEGMENTED NEUTROPHILS % (AUTO) 60.6 % (42-78); TOTAL CELLS COUNTED % (AUTO) 100 %; WHITE BLOOD COUNT 6.1 10^3/uL (4.0-10.5)
[2018-03-20] MEDS ORDERED: METOCLOPRAMIDE HCL ORAL SOLN 10 MG/10 ML UDCUP PO ONE (20:47)
[2018-03-20] MEDS ORDERED: MAG HYDROX/AL HYDROX/SIMETH SUSP 30 ML UDCUP PO ONE (20:47)
[2018-03-20] MEDS ORDERED: LIDOCAINE 2% VISCOUS SOLN 20 ML UDCUP PO ONE (20:47)
[2018-03-20 20:49] LABS: ALANINE AMINOTRANSFERASE 15 U/L (9-52); ALBUMIN 4.8 g/dL (3.5-5.0); ALKALINE PHOSPHATASE 49 U/L (38-126); ANION GAP 15 (5-19); ASPARTATE AMINO TRANSFERASE 18 U/L (14-36); BILIRUBIN,DIRECT 0.3 mg/dL (0.0-0.4); BILIRUBIN,TOTAL 0.5 mg/dL (0.2-1.3); BLOOD UREA NITROGEN 14 mg/dL (7-20); CALCIUM 9.9 mg/dL (8.4-10.2); CARBON DIOXIDE 23 mmol/L (22-30); CHLORIDE 104 mmol/L (98-107); CREATINE KINASE 149 U/L (30-135); GLUCOSE 88 mg/dL (75-110); POTASSIUM 4.4 mmol/L (3.6-5.0); SODIUM 141.6 mmol/L (137-145); TOTAL PROTEIN 7.9 g/dL (6.3-8.2)
--- NOTE | 2018-03-20 21:11 | EKG REPORT ---
SEVERITY:- BORDERLINE ECG - SINUS RHYTHM BORDERLINE INFERIOR Q WAVES : Confirmed by: Salbador Braxton MD 20-Mar-2018 21:09:49
[2018-03-20 21:15] LABS: CREATINE KINASE MB 0.97 ng/mL (<4.55)
--- NOTE | 2018-03-20 21:16 | RADIOLOGY REPORT (SQ) ---
EXAM DESCRIPTION: XR CHEST 1 VIEW COMPLETED DATE/TME: 03/20/2018 19:50 CLINICAL HISTORY: 47 years, Female, cp Findings: The heart is not enlarged. Lungs are clear. No pneumothorax. No pleural effusion. IMPRESSION: No acute disease.
[2018-03-20 21:17] LABS: TROPONIN I < 0.012 ng/mL
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
[2018-03-20 23:39] VITALS: BP 128/81
== END 2018-03-20 23:56 | disposition home or self-care (01) ==
LOC: ER 19:37
DX: R07.9 Chest pain, unspecified (principal); I10 Essential (primary) hypertension; Z87.891 Personal history of nicotine dependence; Z82.49 Family history of ischemic heart disease and other diseases of the circulatory system; Z88.1 Allergy status to other antibiotic agents; Z88.0 Allergy status to penicillin; Z88.2 Allergy status to sulfonamides; Z88.8 Allergy status to other drugs, medicaments and biological substances
CPT/HCPCS: 93005; 99285; 36415; 82553; 82550; 83690; 85025; 80053; 84484; 71045; 93010; J3490

== ENCOUNTER → 2019-03-30 | Outpatient (CLI) | payer BC ==
--- NOTE | 2019-03-31 08:01 | WOMENS IMAGING REPORT ---
EXAM DESCRIPTION: BILAT SCREENING MAMMO W/CAD COMPLETED DATE/TIME: 03/30/2019 9:06 am REASON FOR STUDY: Z12.31 Z12.31 ENCNTR SCREEN MAMMOGRAM FOR MALIGNANT NEOPLASM OF JOHANA COMPARISON: None available EXAM PARAMETERS: Standard craniocaudal and mediolateral oblique views of each breast recorded using digital acquisition. Read with the assistance of CAD. .[facility] - [employer] Version 9.2 LIMITATIONS: None. FINDINGS: No suspicious masses, suspicious calcifications or architectural distortion. No areas of c oncern. IMPRESSION: Negative MAMMOGRAM. BIRADS 1 BREAST DENSITY: c. The breasts are heterogeneously dense, which may obscure small masses. BIRAD: ASSESSMENT: 1 NEGATIVE RECOMMENDATION: ROUTINE SCREENING Please continue yearly bilateral screening mammography/tomosynthesis in March 2020 COMMENT: The patient has been notified of the results by letter per MQSA requirements. Additional no tification policies are in place for contacting patient with suspicious or incomplete findings. Quality ID #[id number]: The [employer] recommends an annual screening mammogram for women aged 40 years or over. This facility utilizes a reminder system to ensure that all patients receive reminder letters, and/or direct phone calls for appointments. This includes reminders for routine scr eening mammograms, diagnostic mammograms, or other Breast Imaging Interventions when appropriate. Th is patient will be placed in the appropriate reminder system. TECHNICAL DOCUMENTATION: FINDING NUMBER: (1) ASSESSMENT: (1) JOB ID: [id number] [employer]- All Rights Reserved Reading location - IP/workstation name: [email or web address]
== END ==
LOC: WI 08:25
PROVIDERS: ATTEND Nurse Practitioner Primary Care
DX: Z00.01 Encounter for general adult medical examination with abnormal findings (principal); Z12.31 Encounter for screening mammogram for malignant neoplasm of breast
CPT/HCPCS: 77067